=== PATIENT | female | born 1990 | race American Indian/Alaskan Native ===

== ENCOUNTER 2017-09-22 20:31 | Emergency (ER) | payer SELFPAY ==
[2017-09-23 00:52] LABS: HCG Qualitative,Urine Negative (Negative)
[2017-09-23 01:05] LABS: Color,Urine Yellow (Yellow)
[2017-09-23 01:08] LABS: Bilirubin,Urine Negative (Negative); Blood,Urine Small (Negative); Nitrite,Urine Negative (Negative); Urobilinogen,Urine < 0.2 mg/dL (<2.0)
[2017-09-23 01:09] LABS: Bacteria,Urine 1+ /HPF (Negative); Mucus,Urine FEW /HPF
--- NOTE | 2017-09-23 03:30 | Emergency Department Report ---
ED Female HPI - General Chief complaint: Urogenital-Female Stated complaint: UTI Time Seen by Provider: 09/23/17 01:51 Source: patient Mode of arrival: Ambulatory Limitations: No Limitations - History of Present Illness Initial comments: This is a 27 y.o. female, presents with urine that is cloudy with odor for 2 weeks. Her back started hurting 3 days ago. She has frequent urinary tract infections because she has lupus. She recently had a UTI in July and the symptoms are very similar. Denies dysuria, abdominal pain, exposure to STD, and fever. MD Complaint: vaginal discharge (thick white) -: week(s) (2) Location: labia (itching) Radiation: L flank Severity: moderate Severity scale (0 -10): 8 Quality: aching, other (itching) Consistency: intermittent Worsens with: urination Are you Now?: No Associated Symptoms: vaginal discharge. denies: vaginal bleeding, abdominal pain, nausea/vomiting, fever/chills, headaches, loss of appetite, dysuria, hematuria, rash, seizure, shortness of breath, syncope, weakness - Related Data Sexually active: Yes Previous Rx's Medication Instructions Recorded Last Taken Type Ciprofloxacin HCl [Cipro] 250 mg PO BID 5 Days #10 tablet 09/23/17 Unknown Rx metroNIDAZOLE [Metronidazole] 500 mg PO BID 7 Days #14 tablet 09/23/17 Unknown Rx Allergies Allergy/AdvReac Type Severity Reaction Status Date / Time No Known Allergies Allergy Unverified 09/22/17 22:49 ED Review of Systems ROS: Stated complaint: UTI Other details as noted in HPI Constitutional: see HPI. denies: chills, diaphoresis, fever, malaise, weakness Respiratory: no symptoms reported, see HPI. denies: cough, orthopnea, shortness of breath, SOB with exertion, SOB at rest, stridor, wheezing Cardiovascular: as per HPI. denies: chest pain, palpitations, dyspnea on exertion, orthopnea, edema, syncope, paroxysmal nocturnal dyspnea Gastrointestinal: as per HPI. denies: abdominal pain, nausea, vomiting, diarrhea, constipation, hematemesis, melena, hematochezia Genitourinary: as per HPI, urgency, frequency, discharge. denies: dysuria, hematuria, abnormal menses, dyspareunia Neurological: as per HPI. denies: headache, weakness, numbness, paresthesias, confusion, abnormal gait, vertigo ED Past Medical Hx - Past Medical History Previous Medical History?: Yes Additional medical history: UTI's - Surgical History Past Surgical History?: No - Social History Smoking Status: Never Smoker Substance Use Type: None - Medications Home Medications: Home Medications Medication Instructions Recorded Confirmed Last Taken Type Ciprofloxacin HCl [Cipro] 250 mg PO BID 5 Days #10 tablet 09/23/17 Unknown Rx metroNIDAZOLE [Metronidazole] 500 mg PO BID 7 Days #14 tablet 09/23/17 Unknown Rx ED Physical Exam - General Limitations: No Limitations General appearance: alert, in no apparent distress - Respiratory Respiratory exam: Present: normal lung sounds bilaterally. Absent: respiratory distress, wheezes, rales, rhonchi, stridor, chest wall tenderness, accessory muscle use, decreased breath sounds, prolonged expiratory - Cardiovascular Cardiovascular Exam: Present: regular rate, normal rhythm. Absent: systolic murmur, diastolic murmur, rubs, gallop - GI/Abdominal GI/Abdominal exam: Present: soft, normal bowel sounds - Rectal Rectal exam: Present: deferred - External exam: Present: normal external exam. Absent: erythema, swelling, lesions, lacerations, ecchymosis, bleeding Speculum exam: Present: vaginal discharge (white, thick, foul odor). Absent: erythema, cervical discharge, vaginal bleeding, foreign body, tissue, laceration Bi-manual exam: Present: normal bi-manual exam - Back Exam Back exam: Present: full ROM, CVA tenderness (L). Absent: CVA tenderness (R), muscle spasm, paraspinal tenderness, vertebral tenderness, rash noted - Neurological Exam Neurological exam: Present: alert, oriented X3 ED Course Vital Signs 09/22/17 09/23/17 22:46 03:59 Temperature 98.8 F Pulse Rate 109 H 82 Respiratory 17 18 Rate Blood Pressure 102/56 Blood Pressure 103/59 [Left] O2 Sat by Pulse 99 99 Oximetry ED Medical Decision Making - Medical Decision Making 27 y.o. female presents with frequancy, urgency, and left flank pain x 2 weeks. History of frequent UTI's. Denies STD exposure and treatment until results. Discussed UA, ordered culture, G/C, & wet prep Treated for vaginitis and cystitis. Started on cipro and metronidazole. Critical care attestation.: If time is entered above; I have spent that time in minutes in the direct care of this critically ill patient, excluding procedure time. ED Disposition Disposition: DC-01 TO HOME OR SELFCARE Is pt being admited?: No Does the pt Need Aspirin: No Condition: Stable Instructions: Urinary Tract Infection in Women (ED), Vaginitis (ED) Additional Instructions: Increase fluid intake. Wipe from front to back. Follow up with primary care provider. Prescriptions: Ciprofloxacin HCl [Cipro] 250 mg PO BID 5 Days #10 tablet metroNIDAZOLE [Metronidazole] 500 mg PO BID 7 Days #14 tablet Referrals: PAGE HORN MD [Primary Care Provider] - 3-5 Days [facility] [Outside] - 3-5 Days [facility] [Outside] - 3-5 Days [facility] [Outside] - 3-5 Days Time of Disposition: 03:44 Print Language: BELARUSIAN
[2017-09-23 03:59] VITALS: BP 103/59
== END 2017-09-23 04:10 | disposition home or self-care (01) ==
LOC: ED 20:31
DX: N89.8 Other specified noninflammatory disorders of vagina (principal)
CPT/HCPCS: 81001; 81025; 87076; 87086; 87186; 87210; 87591; 99284